=== PATIENT | male | born 1990 | race Two or more races ===

== ENCOUNTER 2025-07-25 21:28 | Emergency (ER) | payer SELFPAY ==
[2025-07-25 21:31] VITALS: BMI 38.0
[2025-07-25 21:58] VITALS: BP 128/94; PULSE 101; RESP 20; TEMP 36.6; O2SAT 98
[2025-07-25] MEDS: NAPROXEN 250 MG TABLET 500 MG PO (22:33)
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
== END 2025-07-25 22:34 | disposition home or self-care (01) ==
LOC: SERX 22:40
PROVIDERS: Emergency Provider Emergency Medicine
DX: T23.002A Burn of unspecified degree of left hand, unspecified site, initial encounter (principal); X11.8XXA Contact with other hot tap-water, initial encounter
CPT/HCPCS: 99281; A9270